=== PATIENT | female | born 2000 | race Caucasian/White ===

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

== ENCOUNTER → 2020-10-28 | Outpatient (CLI) | payer SELFPAY | END | disposition home or self-care (01) | LOC: LABWHC1 10:51 | PROVIDERS: ATTEND Internal Medicine | DX: E73.9 Lactose intolerance, unspecified (principal); Z13.811 Encounter for screening for lower gastrointestinal disorder | CPT/HCPCS: 36415; 83516 ==